=== PATIENT | female | born 1980 | race Two or more races ===

== ENCOUNTER → 2018-07-26 | Outpatient (CLI) | payer MEDICAID | END | disposition home or self-care (01) | LOC: Rad HDHVI 14:56 | PROVIDERS: ATTEND Internal Medicine Cardiovascular Disease | DX: I08.1 Rheumatic disorders of both mitral and tricuspid valves (principal); R06.02 Shortness of breath | CPT/HCPCS: 93306 ==

== ENCOUNTER → 2018-08-23 | Outpatient (CLI) | payer MEDICAID ==
[~2018-08-23] VITALS: Ht 157.5 cm; Wt 72.6 kg
== END | disposition home or self-care (01) ==
LOC: Rad HDHVI 09:11
PROVIDERS: ATTEND Internal Medicine Cardiovascular Disease
DX: R06.02 Shortness of breath (principal); R07.89 Other chest pain
CPT/HCPCS: 78452; 93017; 96374; A9500

== ENCOUNTER → 2021-03-27 | Outpatient (CLI) | payer MEDICAID | END | disposition home or self-care (01) | LOC: Rad HDHVI 15:05 | PROVIDERS: ATTEND Internal Medicine Cardiovascular Disease | DX: I07.1 Rheumatic tricuspid insufficiency (principal); R06.02 Shortness of breath; R07.89 Other chest pain | CPT/HCPCS: 93306 ==

== ENCOUNTER → 2022-05-15 | Outpatient (CLI) | payer MEDICAID ==
[~2022-05-15] MED LIST: POM
== END | disposition home or self-care (01) ==
LOC: Rad HDHVI 15:01
PROVIDERS: ATTEND Internal Medicine Cardiovascular Disease
DX: R06.02 Shortness of breath (principal); I10 Essential (primary) hypertension
CPT/HCPCS: 93306

== ENCOUNTER → 2022-05-26 | Outpatient (CLI) | payer MEDICAID ==
[~2022-05-26] MED LIST changes: +CHOL-17 PO; +[UNRECOGNIZED DRUG - CODE] PO
[2022-05-26 08:25] VITALS: BP 116/74
[2022-05-26 08:43] VITALS: BP 114/63
== END | disposition home or self-care (01) ==
LOC: Rad HDHVI 08:17
PROVIDERS: ATTEND Internal Medicine Cardiovascular Disease
DX: Z01.818 Encounter for other preprocedural examination (principal); I07.1 Rheumatic tricuspid insufficiency; R07.9 Chest pain, unspecified; I10 Essential (primary) hypertension; R06.02 Shortness of breath
CPT/HCPCS: 71046; 93005; G0463

== ENCOUNTER 2022-05-29 07:04 | Day surgery (SDC) | payer MEDICAID ==
[2022-05-26 11:30] LABS: Basophils # (auto) 0 10 ^3/uL (0-0.2); Basophils % (auto) 0.5 % (0.0-2.0); Eosinophils # (auto) 0.1 10 ^3/uL (0-0.8); Eosinophils % (auto) 1.9 % (0.0-7.0); Hematocrit 35.7 % (36.0-46.0); Hemoglobin 11.9 g/dL (12.2-16.2); Lymphocytes # (auto) 2.1 10 ^3/uL (0.4-5.4); Lymphocytes % (auto) 32.6 % (10.0-50.0); Mean Corpuscular Hemoglobin 28.1 pg (28.0-32.0); Mean Corpuscular Hgb Conc. 33.4 g/dL (32.0-36.0); Mean Corpuscular Volume 84.2 fL (80.0-100.0); Monocytes # (auto) 0.5 10 ^3/uL (0-1.3); Monocytes % (auto) 7.9 % (0.0-12.0); Neutrophils # (auto) 3.7 10 ^3/uL (1.6-8.6); Neutrophils % (auto) 57.1 % (37.0-80.0); Red Blood Cells 4.24 10^6/uL (4.0-5.20); Red Cell Distribution Width 13.3 % (11.8-14.3); White Blood Cell 6.4 10^3/uL (4.4-10.8)
[2022-05-26 11:46] LABS: INR 0.95 (0.9-1.15); Partial Thromboplastin Time 28.2 sec (24.6-33.4)
[2022-05-26 12:08] LABS: BUN/Creatinine Ratio 21.4 (10.0-20.0); Calcium 8.9 mg/dL (8.5-10.1); Potassium 4.1 mmol/L (3.5-5.1)
[~2022-05-29] VITALS: Ht 157.5 cm; Wt 78.5 kg
[~2022-05-29 07:04] MED LIST changes: -CHOL-17 PO; -[UNRECOGNIZED DRUG - CODE] PO
[2022-05-29] MEDS ORDERED: IODIXANOL 320MG/ML 100ML BTL IV ONE (08:26)
[2022-05-29] MEDS ORDERED: LIDOCAINE 2%HCL (LOCAL ANESTH.) INJ 10ml MDV ONE (08:26)
[2022-05-29] MEDS ORDERED: fentaNYL CITRATE 100 MCG/2 ML VL ONE (09:01)
[2022-05-29] MEDS ORDERED: ANGIOMAX 250 MG VIAL IV ONE (09:01)
[2022-05-29] MEDS ORDERED: MIDAZOLAM HCL 2MG/2ML 2ml VIAL (1mg/ml) ONE (09:02)
[2022-05-29] MEDS ORDERED: SODIUM CHL 0.9% 0 ML ONE (09:02)
[2022-05-29] MEDS ORDERED: [UNRECOGNIZED DRUG - CODE] PO (10:21)
[2022-05-29] MEDS ORDERED: CHOL-17 PO (10:21)
== END 2022-05-29 11:30 | disposition home or self-care (01) ==
LOC: CATH 07:04
PROVIDERS: ATTEND Internal Medicine Cardiovascular Disease
DX: R07.89 Other chest pain (principal); M94.0 Chondrocostal junction syndrome [Tietze]; E66.01 Morbid (severe) obesity due to excess calories; Z88.0 Allergy status to penicillin; R06.02 Shortness of breath; Z20.822 Contact with and (suspected) exposure to COVID-19
CPT/HCPCS: 36415; 80048; 85025; 85610; 85730; 93458; C1769; C1894; J1644; J2001; J2250; J3010; Q9967; U0003

== ENCOUNTER 2022-05-31 12:34 | Emergency (ER) | payer MEDICAID ==
[~2022-05-31] VITALS: Ht 157.5 cm; Wt 78.3 kg
[~2022-05-31 12:34] MED LIST changes: +CHOL-17 PO; -POM; +[UNRECOGNIZED DRUG - CODE] PO
[2022-05-31 14:17] VITALS: BP 127/70
== END 2022-05-31 15:14 | disposition home or self-care (01) ==
LOC: ER 12:34
DX: M79.672 Pain in left foot (principal); M79.671 Pain in right foot

== ENCOUNTER → 2022-06-18 | Outpatient (CLI) | payer MEDICAID | END | disposition home or self-care (01) | LOC: Rad HDHVI 15:12 | PROVIDERS: ATTEND Internal Medicine Cardiovascular Disease | DX: M79.671 Pain in right foot (principal); M79.672 Pain in left foot; I10 Essential (primary) hypertension; Z88.0 Allergy status to penicillin; Z20.822 Contact with and (suspected) exposure to COVID-19 | CPT/HCPCS: 93925; 93970 ==

== ENCOUNTER 2022-09-08 07:25 | Emergency (ER) | payer MEDICAID ==
[~2022-09-08] VITALS: Ht 157.5 cm; Wt 79.3 kg
[2022-09-08 07:32] VITALS: BP 129/68; PULSE 89; RESP 16; TEMP 98.3; O2SAT 98
[2022-09-08] MEDS ORDERED: IBUP-1454 PO (09:12)
[2022-09-08] MEDS ORDERED: ACET500T58 PO (09:12)
[2022-09-08] MEDS ORDERED: NITR-87 PO (09:35)
== END 2022-09-08 09:47 | disposition home or self-care (01) ==
LOC: ER 07:25
DX: N39.0 Urinary tract infection, site not specified (principal); M79.10 Myalgia, unspecified site; Z20.822 Contact with and (suspected) exposure to COVID-19
CPT/HCPCS: 36415; 81002; 81025; 87426; 87804

== ENCOUNTER → 2024-06-06 | Outpatient (CLI) | payer MEDICAID ==
[~2024-06-06] MED LIST changes: +ACET500T58 PO; +ALBU108A5 IN; +IBUP-1454 PO; +IBUP200T26 PO; +NITR-87 PO; +OMEP-434 PO; -[UNRECOGNIZED DRUG - CODE] PO
--- NOTE | 2024-06-06 12:11 | DVH ---
XY CHEST TWO VIEWS ROUTINE, HISTORY: SOB COMPARISON: XY CHEST TWO VIEWS ROUTINE on DOS: 05/26/22 XY CHEST TWO VIEWS ROUTINE on DOS: 05/26/22 TECHNICAL DATA: 2 view of the chest was obtained. FINDINGS: Lines and tubes: None Cardiomediastinal silhouette: normal Pulmonary vasculature: normal Lung expansion: normal Lung airspace: normal Lung interstitium: normal Pleura: normal Pneumothorax: no Bones: Unremarkable Other: no IMPRESSION: No acute intrathoracic abnormality.
== END | disposition home or self-care (01) ==
LOC: Rad HDHVI 09:43
PROVIDERS: ATTEND Internal Medicine Cardiovascular Disease
DX: R06.02 Shortness of breath (principal)
CPT/HCPCS: 71046

== ENCOUNTER → 2024-06-09 | Outpatient (CLI) | payer MEDICAID | END | disposition home or self-care (01) | LOC: Rad HDHVI 08:05 | PROVIDERS: ATTEND Internal Medicine Cardiovascular Disease | DX: R06.02 Shortness of breath (principal) | CPT/HCPCS: 93306 ==

== ENCOUNTER → 2024-07-05 | Outpatient (CLI) | payer MEDICAID ==
[~2024-07-05] VITALS: Ht 157.5 cm; Wt 84.4 kg
--- NOTE | 2024-07-12 10:11 | DVHSR ---
APPROVED REPORT Exam: Nuclear Stress Test Indication: Chest pain, Dyspnea Ht: 5 ft 2 in Wt: 186 lbs BSA: 1.85 m2 HR: 60 bpm BP: 114/80 mmHg BMI: 34.01 Rhythm: NSR Medical History Medical History: HTN, SOB Medications: Ibuprofen, Albuterol hfa, Vit D3 Allergies: Penicillin Cardiac Risk Factors: Family Hx of CAD Stress Test Details Stress Test: Exercise stress testing was performed using a Hector protocol. HR Resting HR: 60 bpmMax Heart Rate (APMHR): 176.345992 bpm Max HR Achieved: 153 bpmTarget HR (85% APMHR): 149.512924 bpm % of APMHR: 86.93 Recovery HR: 96 bpm HR response to stress: Normal HR response to stress BP Resting BP: 114/80 mmHg Max BP: 182/82 mmHg Recovery BP: 127/66 mmHg BP response to stress: Exaggerated response ECG Resting ECG: Sinus Rhythm Stress ECG: Sinus Tachycardia Arrhythmia: None Recovery ECG: Sinus Rhythm Clinical Reason for Termination: Fatigue Stress Symptoms: Tightness in chest Exercise duration: 6 min 55 sec Exercise capacity: 7.0 METs Tightness in chest subsided during recovery. Stress ECG Conclusion NON ISCHEMIC ECG RESPONSE NON ISCHEMIC CARDIOLITE STRESS EF >55% LESS SURAJ 10% LIKELIHOOD FOR STRESS INDUCED ISCHEMIA NM EXAM: Myocardial Perfusion REST/STRESS Imaging Protocol: Rest Tc-99m/Stress Tc-99m 1 day Resting Data Rest SPECT myocardial perfusion imaging was performed in supine position 30 minutes following the int ravenous injection of 10.89 mCi of Tc-99m Sestamibi. Time of rest injection: 815 Date: 07/05/2024 Time of rest imagin Date: 07/05/2024 Administration Route: IV Administration Site: Left AC Exercise Stress At peak stress, the patient was injected intravenously with 30.4 mCi of Tc-99m Sestamibi. Time of stress injection: 953 Date: 07/05/2024 Time of stress imagin Date: 07/05/2024 Administration Route: IV Administration Site: Left AC Heart Rate at time of stress injection: 151 bpm. Patient continued to exercise for 1 minute(s). Gated Stress SPECT was performed 15 minutes after stress injection. Comments Cardiolite injection at 5 minutes, 57 seconds into test. Study Data Post stress, the left ventricular ejection was >55%.. Nuclear Conclusion NON ISCHEMIC ECG RESPONSE NON ISCHEMIC CARDIOLITE STRESS EF >55% LESS SURAJ 10% LIKELIHOOD FOR STRESS INDUCED ISCHEMIA
== END | disposition home or self-care (01) ==
LOC: Rad HDHVI 08:05
PROVIDERS: ATTEND Internal Medicine Cardiovascular Disease
DX: R00.0 Tachycardia, unspecified (principal); I99.8 Other disorder of circulatory system; R07.89 Other chest pain; R06.00 Dyspnea, unspecified; I11.0 Hypertensive heart disease with heart failure; I50.33 Acute on chronic diastolic (congestive) heart failure; I82.409 Acute embolism and thrombosis of unspecified deep veins of unspecified lower extremity; I73.9 Peripheral vascular disease, unspecified; R06.02 Shortness of breath; Z82.49 Family history of ischemic heart disease and other diseases of the circulatory system; Z88.0 Allergy status to penicillin
CPT/HCPCS: 78452; 93017; A9500; 96374